=== PATIENT | female | born 1995 | race Caucasian/White ===

== ENCOUNTER 2021-09-13 13:00 | Emergency (ER) | payer OTHER ==
[2021-09-13 13:07] VITALS: BP 113/75; PULSE 70; TEMP 98.2; BMI 21.2
[2021-09-13 15:12] LABS: BASO % 0.4 % (0-2.0); HEMOGLOBIN 13.7 GM/dL (10.7-15.3); LYMPH % 25.4 % (8-40); MCH 30.6 pg (25.7-33.7); MCHC 33.5 g/dl (32.0-36.0); MEAN CELL VOLUME 91.2 fl (80-96); MEAN PLT VOLUME 8.8 fl (7.5-11.1); MONO % 6.5 % (3.8-10.2); NEUT % 65.7 % (42.8-82.8); PLATELET COUNT 215 10^3/uL (134-434); RBC 4.49 M/mm3 (3.60-5.2); RDW 13.2 % (11.6-15.6)
[2021-09-13 15:29] LABS: BLOOD UREA NITROGEN 13.4 mg/dL (7-18)
[2021-09-13 15:32] LABS: CREATININE 0.7 mg/dL (0.55-1.3)
[2021-09-13 15:33] LABS: BILIRUBIN,TOTAL 0.6 mg/dL (0.2-1)
[2021-09-13 15:34] LABS: TOT PROT 7.6 g/dl (6.4-8.2)
== END 2021-09-13 16:54 | disposition left against medical advice (07) ==
LOC: JER 13:00
DX: R10.2 Pelvic and perineal pain (principal)
CPT/HCPCS: 36415; 80053; 84703; 85025; 99284-25